=== PATIENT | female | born 2000 | race Two or more races ===

== ENCOUNTER 2021-06-10 11:20 | Emergency (ER) | payer OTHER ==
[~2021-06-10] VITALS: Ht 160 cm; Wt 54.4 kg
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
[2021-06-10 11:32] VITALS: BP 103/72
[2021-06-10] MEDS ORDERED: PRED50TA PO (11:54)
[2021-06-10] MEDS ORDERED: DOXY-326 PO (11:54)
[2021-06-10] MEDS ORDERED: DIPH50CA4 PO (11:54)
[2021-06-10] MEDS ORDERED: FAMO-131 PO (11:54)
[2021-06-10] MEDS ORDERED: CEFTRIAXONE 500 MG VIAL IM ONE (12:00)
[2021-06-10] MEDS ORDERED: DOXYCYCLINE HYCLATE (100 MG) 100 MG TABLET PO ONE (12:00)
[2021-06-10] MEDS ORDERED: CEFTRIAXONE 500 MG VIAL ONE (12:01)
[2021-06-10] MEDS ORDERED: DOXYCYCLINE HYCLATE (100 MG) 100 MG TABLET ONE (12:02)
--- NOTE | 2021-06-10 12:18 | NUR ---
URINE COLLECTED AND SENT TO THE LAB
== END 2021-06-10 12:33 | disposition home or self-care (01) ==
LOC: ER 12:22
DX: L50.9 Urticaria, unspecified (principal); Z79.899 Other long term (current) drug therapy
CPT/HCPCS: 87491; 87591; 96372; 99283; A6403; J0696

== ENCOUNTER 2022-03-28 15:02 | Emergency (ER) | payer OTHER ==
[~2022-03-28] VITALS: Ht 160 cm; Wt 54.4 kg
[~2022-03-28 15:02] MED LIST: DIPH50CA4 PO; DOXY-326 PO; FAMO-131 PO; PRED50TA PO
--- NOTE | 2022-03-28 15:06 | NUR ---
CALLED IN TRIAGE, NO ANSWER
--- NOTE | 2022-03-28 15:15 | NUR ---
CALLED IN TRIAGE, NO ASNWER
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
[2022-03-28] MEDS ORDERED: ACETAMINOPHEN 325 MG TABLET PO ONE (16:00)
--- NOTE | 2022-03-28 16:01 | NUR ---
RADIOLOGY AT BEDSIDE
--- NOTE | 2022-03-28 16:03 | NUR ---
CALLED UNISAW OPERATOR, NO RESPONSE
[2022-03-28] MEDS ORDERED: ACETAMINOPHEN 325 MG TABLET ONE (16:04)
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
--- NOTE | 2022-03-28 16:57 | NUR ---
Patient discharged to home in stable condition. Written and verbal after care instructions given. Patient verbalizes understanding of instruction.
[2022-03-28 16:58] VITALS: BP 106/56
== END 2022-03-28 16:59 | disposition home or self-care (01) ==
LOC: ER 15:07
DX: S82.302A Unspecified fracture of lower end of left tibia, initial encounter for closed fracture (principal); S82.402A Unspecified fracture of shaft of left fibula, initial encounter for closed fracture; M25.572 Pain in left ankle and joints of left foot; Z79.899 Other long term (current) drug therapy; W01.0XXA Fall on same level from slipping, tripping and stumbling without subsequent striking against object, initial encounter; Y93.89 Activity, other specified; Y92.89 Other specified places as the place of occurrence of the external cause; Y99.8 Other external cause status
CPT/HCPCS: 73610-TC